=== PATIENT | female | born 1975 | race Caucasian/White ===

== ENCOUNTER 2016-11-18 17:46 | Emergency (ER) | payer MEDICAID ==
[2016-11-18] MEDS ORDERED: PROMETHAZINE HCL 25 MG TABLET PO ONE (18:32)
--- NOTE | 2016-11-18 18:32 | ER Document Report ---
ED Medical Screen (RME) - General Stated Complaint: CHEST PAIN,VOMITING,ANXIETY Notes: 41 yo female c/o n/v x 1 day, urinary frequency since yesterday. no fever. + hot/cold. also c/o left sided chest pain intermittantly x several days. pt is tachy HR 132, hypotensive 96/68. TRAVEL OUTSIDE OF THE [place] IN LAST 30 DAYS: No - Related Data Allergies/Adverse Reactions: acetaminophen [From Darvocet-N 100] Allergy (Verified 09/25/15 08:44) ibuprofen [From Motrin] Allergy (Verified 09/25/15 08:44) propoxyphene napsylate [From Darvocet-N 100] Allergy (Verified 09/25/15 08:44) Past Medical History - Social History Family history: Reviewed & Not Pertinent - Past Medical History Cardiac Medical History: Reports: Hx Hypercholesterolemia, Hx Hypertension Pulmonary Medical History: Reports: Hx Bronchitis Renal/ Medical History: Reports: Hx Ovarian Cysts GI Medical History: Reports: Hx Gastroesophageal Reflux Disease Musculoskeltal Medical History: Reports Hx Musculoskeletal Deformity, Reports Hx Musculoskeletal Trauma Psychiatric Medical History: Reports: Hx Anxiety, Hx Depression, Hx Post Traumatic Stress Disorder Past Surgical History: Reports: Hx Section, Hx Gynecologic Surgery - molar - Immunizations Hx Diphtheria, Pertussis, Tetanus Vaccination: Yes
[2016-11-18 19:22] LABS: ABSOLUTE BASOPHILS # (AUTO) 0.1 10^3/uL (0.0-0.2); ABSOLUTE LYMPHOCYTES (AUTO) 3.2 10^3/uL (0.5-4.7); ABSOLUTE MONOCYTES (AUTO) 0.5 10^3/uL (0.1-1.4); ABSOLUTE NEUT (AUTO) 10.8 10^3/uL (1.7-8.2); BASOPHILS % (AUTO) 0.4 % (0-2); EOSINOPHILS % (AUTO) 0.2 % (0-6); HEMATOCRIT 36.8 % (36.0-47.0); HEMOGLOBIN 11.9 g/dL (12.0-15.5); HGB HCT DIFFERENCE -1.1; LYMPHOCYTES % (AUTO) 22.1 % (13-45); MEAN CORPUSCULAR HEMOGLOBIN 23.1 pg (27.0-33.4); MEAN CORPUSCULAR HGB CONC 32.4 g/dL (32.0-36.0); MEAN CORPUSCULAR VOLUME 71 fl (80-97); MONOCYTES % (AUTO) 3.7 % (3-13); RED BLOOD COUNT 5.17 10^6/uL (3.72-5.28); RED CELL DISTRIBUTION WIDTH 13.6 % (11.5-14.0); SEGMENTED NEUTROPHILS % (AUTO) 73.6 % (42-78); WHITE BLOOD COUNT 14.6 10^3/uL (4.0-10.5)
[2016-11-18 19:24] LABS: APPEARANCE,URINE SLIGHTLY-CLOUDY; BILIRUBIN,URINE NEGATIVE (NEGATIVE); GLUCOSE, URINE NEGATIVE (NEGATIVE); KETONES,URINE TRACE mg/dL (NEGATIVE); LEUKOCYTE ESTERASE,URINE NEGATIVE (NEGATIVE); NITRITE,URINE NEGATIVE (NEGATIVE); PROTEIN,URINE 100 mg/dL (NEGATIVE); UROBILINOGEN,URINE NEGATIVE mg/dL (<2.0)
[2016-11-18 19:44] LABS: ALANINE AMINOTRANSFERASE 25 U/L (9-52); ALBUMIN 4.7 g/dL (3.5-5.0); ALKALINE PHOSPHATASE 91 U/L (38-126); ASPARTATE AMINO TRANSFERASE 28 U/L (14-36); BILIRUBIN,TOTAL 0.9 mg/dL (0.2-1.3); BLOOD UREA NITROGEN 11 mg/dL (7-20); CALCIUM 10.7 mg/dL (8.4-10.2); CREATINE KINASE 54 U/L (30-135); GLUCOSE 102 mg/dL (75-110); LIPASE 92.2 U/L (23-300); TOTAL PROTEIN 8.8 g/dL (6.3-8.2)
[2016-11-18 19:52] LABS: CARBON DIOXIDE 20 mmol/L (22-30); CHLORIDE 102 mmol/L (98-107); POTASSIUM 4.4 mmol/L (3.6-5.0); SODIUM 141.6 mmol/L (137-145)
[2016-11-18 19:55] LABS: ANION GAP 20 (5-19); CREATINE KINASE MB < 0.22 ng/mL (<4.55); TROPONIN I < 0.012 ng/mL
--- NOTE | 2016-11-19 11:28 | EKG REPORT ---
SEVERITY:- OTHERWISE NORMAL ECG - SINUS TACHYCARDIA : Confirmed by: Luther Roman 19-Nov-2016 11:27:05
== END 2016-11-18 22:30 | disposition left against medical advice (07) ==
LOC: ER 17:46
DX: R07.9 Chest pain, unspecified (principal); R11.10 Vomiting, unspecified; R35.0 Frequency of micturition; E78.00 Pure hypercholesterolemia, unspecified; I10 Essential (primary) hypertension; F43.10 Post-traumatic stress disorder, unspecified; Z88.6 Allergy status to analgesic agent
CPT/HCPCS: 93005; 99283; 36415; 82553; 82550; 83690; 85025; 80053; 81001; 84484; 93010; J3490

== ENCOUNTER → 2016-11-20 | Outpatient (CLI) | payer MEDICAID ==
[2016-11-20 19:09] LABS: CHLAM PCR NOT DETECTED (NOT DETECT)
== END ==
LOC: LAB 17:18
PROVIDERS: ATTEND Emergency Medicine
DX: N39.0 Urinary tract infection, site not specified (principal); R35.0 Frequency of micturition
CPT/HCPCS: 87086; 87210; 87491; 87591

== ENCOUNTER 2016-12-22 07:18 | Emergency (ER) | payer OTHER, MEDICAID ==
[2016-12-22 07:28] VITALS: BP 114/77
== END 2016-12-22 08:02 | disposition left against medical advice (07) ==
LOC: ER 07:18
DX: Z53.9 Procedure and treatment not carried out, unspecified reason (principal); R11.2 Nausea with vomiting, unspecified

== ENCOUNTER 2018-10-02 01:59 | Emergency (ER) | payer MEDICAID, OTHER ==
[2018-10-02 02:08] VITALS: BP 113/83
[2018-10-02] MEDS ORDERED: AMOXICILLIN TR/POT CLAVULANATE 500-125 MG TAB PO ONE (02:56)
--- NOTE | 2018-10-02 03:03 | ER Document Report ---
ED General - General Chief Complaint: Sore Throat Stated Complaint: THROAT ISSUES Time Seen by Provider: 10/02/18 02:26 Notes: Patient is a 43-year-old female presents with complaint of sore throat, cough, congestion, and pressure in her sinuses is worse in the right side. Some been going on for approximately a week. Started shortly after her daughter was diagnosed with a pharyngitis. Her daughter had a strep swab which was negative but then the culture grew out staph aureus as a cause of her pharyngitis. She was placed on Augmentin. Daughter is improved after being placed on Augmentin. Patient has had subjective fevers. She says she has had some vomiting after coughing. TRAVEL OUTSIDE OF THE [place] IN LAST 30 DAYS: No - Related Data Allergies/Adverse Reactions: acetaminophen [From Darvocet-N 100] Allergy (Verified 12/22/16 07:28) ibuprofen [From Motrin] Allergy (Verified 12/22/16 07:28) propoxyphene napsylate [From Darvocet-N 100] Allergy (Verified 12/22/16 07:28) Past Medical History - Social History Smoking Status: Never Smoker Frequency of alcohol use: None Drug Abuse: None Family History: Reviewed & Not Pertinent, Arthritis, CAD, DM, Hyperlipidemia, Hypertension - Past Medical History Cardiac Medical History: Reports: Hx Hypercholesterolemia, Hx Hypertension Pulmonary Medical History: Reports: Hx Bronchitis Renal/ Medical History: Reports: Hx Ovarian Cysts. Denies: Hx Peritoneal Dialysis GI Medical History: Reports: Hx Gastroesophageal Reflux Disease Musculoskeletal Medical History: Reports Hx Musculoskeletal Deformity, Reports Hx Musculoskeletal Trauma Psychiatric Medical History: Reports: Hx Anxiety, Hx Depression, Hx Post Traumatic Stress Disorder Past Surgical History: Reports: Hx Section, Hx Gynecologic Surgery - molar - Immunizations Hx Diphtheria, Pertussis, Tetanus Vaccination: Yes Review of Systems - Review of Systems Notes: My Normal Review Basic REVIEW OF SYSTEMS: CONSTITUTIONAL : Subjective fever EENT: Congestion. Sinus pressure. CARDIOVASCULAR: Denies chest pain. RESPIRATORY: Denies cough, cold, or chest congestion. Denies shortness of breath, difficulty breathing, or wheezing. GASTROINTESTINAL: Denies abdominal pain. Denies nausea, vomiting, or diarrhea. MUSCULOSKELETAL: Denies neck or back pain or joint pain or swelling. SKIN: Denies rash or skin lesions. NEUROLOGICAL: Denies altered mental status or loss of consciousness. ALL OTHER SYSTEMS REVIEWED AND NEGATIVE. Physical Exam - Vital signs Vitals: Temp Pulse Resp BP Pulse Ox 98.3 F 106 H 15 113/83 97 10/02/18 02:02 10/02/18 02:02 10/02/18 02:02 10/02/18 02:02 10/02/18 02:02 - Notes Notes: General Appearance: Well nourished, alert, cooperative, no acute distress, no obvious discomfort. Vitals: reviewed, See vital signs table. Head: no swelling or tenderness to the head Eyes: PERRL, EOMI, Conjuctiva clear Mouth: No decreasd moisture Throat: No tonsillar inflammation, No airway obstruction, No lymphadenopathy Nose: Audible nasal congestion. No yellowish drainage from the nose. Ears: Normal-appearing tympanic membranes bilaterally except for some clear fluid behind the right TM. Neck: Supple, no neck tenderness, No thyromegaly Lungs: No wheezing, No rales, No rhonci, No accessory muscle use, good air exchange bilaterally. Heart: Normal rate, Regular rythm, No murmur, no rub Extremities: good pulses in all extremities, no swelling or tenderness in the extremities, no edema. Skin: warm, dry, appropriate color, no rash Neuro: speech clear, oriented x 3, normal affect, responds appropriately to questions. Course - Re-evaluation Re-evalutation: 10/02/18 06:39 Patient has obvious nasal congestion on exam and complains of a lot of sinus pressure going into the right side of her face behind her right ear. She does have clear fluid behind right TM. All the symptoms started after exposure to her son who is culture positive for staph aureus pharyngitis. Informed the mother that this is rare but it does happen sometimes. The patient has a large amount sinusitis after exposure to her son and will place her on Augmentin to help treat this. I encouraged her return to ER if she has fevers, vomiting, worsening pain, difficulty breathing, or feels unwell. Patient agrees with plan and will be discharged home. Dictation of this chart was performed using voice recognition software; therefore, there may be some unintended grammatical errors. - Vital Signs Vital signs: Temp Pulse Resp BP Pulse Ox 98.3 F 106 H 15 113/83 97 10/02/18 02:02 10/02/18 02:02 10/02/18 02:02 10/02/18 02:02 10/02/18 02:02 Discharge - Discharge Clinical Impression: Sinusitis Qualifiers: Sinusitis location: unspecified location Chronicity: acute Recurrence: not specified as recurrent Qualified Code(s): J01.90 - Acute sinusitis, unspecified Condition: Good Disposition: HOME, SELF-CARE Additional Instructions: Please take the antibiotic as prescribed with food. Please return to the ER if you have fevers, difficulty breathing, worsening pain, or feel unwell. Please follow up with your doctor in 3-5 days for reevaluation. Prescriptions: Amox Tr/Potassium Clavulanate [Augmentin 875-125 Tablet] 1 tab PO BID 10 Days tablet Fluconazole [Diflucan] 150 mg PO ASDIR PRN #2 tablet PRN Reason: Referrals: JALEESA GARCIA PA-C [Primary Care Provider] - Follow up in 3-5 days
== END 2018-10-02 03:29 | disposition home or self-care (01) ==
LOC: ER 01:59
DX: J01.90 Acute sinusitis, unspecified (principal); R09.81 Nasal congestion; J02.9 Acute pharyngitis, unspecified; R05 Cough; R11.10 Vomiting, unspecified; I10 Essential (primary) hypertension; Z20.818 Contact with and (suspected) exposure to other bacterial communicable diseases; Z88.6 Allergy status to analgesic agent
CPT/HCPCS: 99282

== ENCOUNTER → 2019-02-02 | Outpatient (CLI) | payer MEDICAID, OTHER ==
--- NOTE | 2019-02-02 15:51 | WOMENS IMAGING REPORT ---
EXAM DESCRIPTION: BILAT SCREENING MAMMO W/CAD COMPLETED DATE/TIME: 02/02/2019 2:12 pm REASON FOR STUDY: Z12.31 ROUTINE BILATERAL [id number] ENCNTR SCREEN MAMMOGRAM FOR MALIGNANT NE OPLASM OF MAURI COMPARISON: 05/29/2015, 06/26/2013, 05/13/2010 TECHNIQUE: Standard craniocaudal and mediolateral oblique views of each breast recorded using [employer] acquisition. LIMITATIONS: None. FINDINGS: RIGHT BREAST MASSES: No suspicious masses. CALCIFICATIONS: No new or suspicious calcifications. ARCHITECTURAL DISTORTION: None. DEVELOPING DENSITY: None. ASYMMETRY: Asymmetrically dense tissue is present in the right breast upper outer quadrant about 5 cm from the nipple. This requires further evaluation with compression magnification views in the CC an d MLO orientations, 90 mediolateral view and right breast ultrasound OTHER: No other significant findings. LEFT BREAST MASSES: No suspicious masses. CALCIFICATIONS: No new or suspicious calcifications. ARCHITECTURAL DISTORTION: None. DEVELOPING DENSITY: None. ASYMMETRY: None noted. OTHER: No other significant findings. Read with the assistance of CAD. .[facility] - R2 Cenova Version 1.3 .[facility] Imaging - R2 Cenova Version 1.3 .[facility] - R2 Cenova Version 2.4 .[facility] [place] - R2 Cenova Version 2.4 .[facility] - R2 Y[employer] Gatherer Version 9.2 IMPRESSION: Asymmetrically dense tissue right breast upper outer quadrant for which diagnostic mammo graphy and ultrasound is recommended No mammographic evidence for malignancy left breast BREAST DENSITY: b. There are scattered areas of fibroglandular density. BIRAD: 0 Incomplete: Needs Additional Imaging Evaluation and/or prior Mammograms for Comparison. RECOMMENDATION: RECOMMENDED FOLLOW-UP: Additional right breast diagnostic mammograms and ultrasound The patient will be contacted for additional imaging. COMMENT: The patient has been notified of the results by letter per [place] requirements. Additional no tification policies are in place for contacting patient with suspicious or incomplete findings. Quality ID #225: The [employer] recommends an annual screening mammogram for women aged 40 years or over. This facility utilizes a reminder system to ensure that all patients receive reminder letters, and/or direct phone calls for appointments. This includes reminders for routine scr eening mammograms, diagnostic mammograms, or other Breast Imaging Interventions when appropriate. Th is patient will be placed in the appropriate reminder system. The [employer] (ACR) has developed recommendations for screening MRI of the breast s in certain patient populations, to be used in conjunction with mammography. Breast MRI surveillanc e may be appropriate for women with more than 20% lifetime risk of developing breast cancer as deter mined by genetic testing, significant family history of the disease, or history of mantle radiation f or Hodgkins Disease. ACR Practice Guidelines 2008. TECHNICAL DOCUMENTATION: FINDING NUMBER: (1) ASSESSMENT: (1) JOB ID: [id number] [employer]- All Rights Reserved Reading location - IP/workstation name: [email or web address]
== END ==
LOC: WI 13:44
PROVIDERS: ATTEND Physician Assistant Medical
DX: Z12.31 Encounter for screening mammogram for malignant neoplasm of breast (principal); R92.2 Inconclusive mammogram
CPT/HCPCS: 77067

== ENCOUNTER → 2019-02-08 | Outpatient (CLI) | payer OTHER ==
--- NOTE | 2019-02-09 08:47 | WOMENS IMAGING REPORT ---
EXAM DESCRIPTION: RIGHT DIAGNOSTIC MAMMO W/CAD; U/S BREAST UNILAT LIMITED COMPLETED DATE/TIME: 02/08/2019 12:25 pm; 02/08/2019 12:46 pm REASON FOR STUDY: N63.11 UNSPECIFIED LUMP IN THE RIGHT BREAST, UPPER OUTER QUADRANT; N63.11 RIGHT BR EAST N63.11 UNSPECIFIED LUMP IN THE RIGHT BREAST, UPPER OUTER LUIS MIGUEL COMPARISON: None. TECHNIQUE: Cone compression craniocaudal and mediolateral oblique images of the breast recorded with digital acquisition. Right breast 90 mediolateral view. Right breast ultrasound was also performed LIMITATIONS: None. FINDINGS: BREAST LATERALITY: Right MASSES: No suspicious masses. CALCIFICATIONS: No new or suspicious calcifications. ARCHITECTURAL DISTORTION: None. DEVELOPING DENSITY: None. ASYMMETRY: There is asymmetrically dense fibroglandular tissue in the upper outer quadrant without ar chitectural distortion or worrisome microcalcifications. OTHER: No other significant findings. Right breast ultrasound: Ultrasound of the upper outer quadrant was performed. There is fibroglandular tissue in the upper ou ter quadrant without worrisome features. IMPRESSION: No mammographic or sonographic evidence for malignancy right breast BREAST DENSITY: b. There are scattered areas of fibroglandular density. BIRAD: 1 Negative. RECOMMENDATION: RECOMMENDED FOLLOW UP: Please continue yearly bilateral screening mammography/ tomos ynthesis in January 2020 SPECIFIC INTERVENTION/IMAGING/CONSULTATION RECOMMENDED:No additional intervention/ imaging/consultati on needed at this time. COMMUNICATION:Patient notified by letter COMMENT: The patient has been notified of the results by letter per MQSA requirements. Additional no tification policies are in place for contacting patient with suspicious or incomplete findings. Quality ID #225: The [employer] recommends an annual screening mammogram for women aged 40 years or over. This facility utilizes a reminder system to ensure that all patients receive reminder letters, and/or direct phone calls for appointments. This includes reminders for routine scr eening mammograms, diagnostic mammograms, or other Breast Imaging Interventions when appropriate. Th is patient will be placed in the appropriate reminder system. TECHNICAL DOCUMENTATION: FINDING NUMBER: (1) ASSESSMENT: (1) JOB ID: [id number] [employer]- All Rights Reserved Reading location - IP/workstation name: [email or web address]
== END ==
LOC: WI 12:13
PROVIDERS: ATTEND Physician Assistant Medical
DX: N63.11 Unspecified lump in the right breast, upper outer quadrant (principal)
CPT/HCPCS: 76642

== ENCOUNTER 2019-09-21 06:54 | Day surgery (SDC) | payer OTHER ==
[2019-09-21 07:26] LABS: APPEARANCE,URINE SLIGHTLY-CLOUDY; BILIRUBIN,URINE NEGATIVE (NEGATIVE); COLOR,URINE YELLOW; GLUCOSE, URINE NEGATIVE (NEGATIVE); KETONES,URINE NEGATIVE (NEGATIVE); LEUKOCYTE ESTERASE,URINE NEGATIVE (NEGATIVE); NITRITE,URINE NEGATIVE (NEGATIVE); PROTEIN,URINE NEGATIVE (NEGATIVE); URINE SPECIFIC GRAVITY 1.027
[2019-09-21] MEDS ORDERED: CEFAZOLIN INJ 1 GM VIAL ONE (07:40)
[2019-09-21 07:46] LABS: HEMATOCRIT 31.8 % (36.0-47.0); HEMOGLOBIN 10.3 g/dL (12.0-15.5); MEAN CORPUSCULAR HEMOGLOBIN 23.5 pg (27.0-33.4); MEAN CORPUSCULAR HGB CONC 32.3 g/dL (32.0-36.0); MEAN CORPUSCULAR VOLUME 73 fl (80-97); PLATELET COUNT 228 10^3/uL (150-450); RED BLOOD COUNT 4.37 10^6/uL (3.72-5.28); RED CELL DISTRIBUTION WIDTH 16.6 % (11.5-14.0); WHITE BLOOD COUNT 5.7 10^3/uL (4.0-10.5)
[2019-09-21 08:04] LABS: ALBUMIN 3.8 g/dL (3.5-5.0); ALKALINE PHOSPHATASE 51 U/L (38-126); ANION GAP 7 (5-19); ASPARTATE AMINO TRANSFERASE 15 U/L (14-36); BILIRUBIN,DIRECT 0.1 mg/dL (0.0-0.4); BILIRUBIN,TOTAL 0.5 mg/dL (0.2-1.3); BLOOD UREA NITROGEN 14 mg/dL (7-20); CALCIUM 9.1 mg/dL (8.4-10.2); CARBON DIOXIDE 29 mmol/L (22-30); CHLORIDE 104 mmol/L (98-107); GLUCOSE 87 mg/dL (75-110); POTASSIUM 3.7 mmol/L (3.6-5.0)
[2019-09-21] MEDS ORDERED: MIDAZOLAM 2 MG/2 ML INJ ONE ×2 (08:04→09:03)
[2019-09-21] MEDS ORDERED: FENTANYL CITRATE INJ/PF 100 MCG/2 ML AMPUL IV PRN ×3 (08:35)
[2019-09-21] MEDS ORDERED: PROMETHAZINE HCL INJ 25 MG/1 ML VIAL IV PRN ×3 (08:35→10:58)
[2019-09-21] MEDS ORDERED: MEPERIDINE HCL/PF INJ 25 MG/1 ML DISP.SYRIN IV PRN (08:35)
[2019-09-21] MEDS ORDERED: DIPHENHYDRAMINE HCL 50 MG/ML VIAL IV PRN (08:35)
[2019-09-21] MEDS ORDERED: MIDAZOLAM 2 MG/2 ML INJ IV ONE (08:45)
[2019-09-21] MEDS ORDERED: LIDOCAINE 2% INJ-PF (20 MG/ML) 10 ML AMPUL ONE (09:03)
[2019-09-21] MEDS ORDERED: FENTANYL CITRATE INJ/PF 100 MCG/2 ML AMPUL ONE (09:03)
[2019-09-21] MEDS ORDERED: DEXAMETHASONE SOD PHOSPHATE INJ 4 MG/1 ML VIAL ONE (09:03)
[2019-09-21] MEDS ORDERED: PROPOFOL INJ 200 MG/20 ML VIAL IV ONE ×2 (09:03→09:21)
[2019-09-21] MEDS ORDERED: LIDOCAINE 1% INJ-PF (10 MG/ML) 30 ML SDV ONE (09:08)
[2019-09-21] MEDS ORDERED: ACETAMINOPHEN 1,000 MG/100 ML RTUPB IV ONE (10:29)
[2019-09-21] MEDS ORDERED: TRAMADOL HCL 50 MG TABLET PO PRN ×2 (10:56→10:57)
[2019-09-21] MEDS ORDERED: ACETAMINOPHEN WITH CODEINE #3 TABLET PO PRN ×2 (11:01)
[2019-09-21] MEDS ORDERED: PROMETHAZINE HCL INJ 25 MG/1 ML VIAL ONE (11:18)
[2019-09-21 12:25] VITALS: BP 128/92
--- NOTE | 2019-09-21 17:21 | Operative Report ---
Operative Report DATE OF SURGERY: 09/21/19 PREOPERATIVE DIAGNOSIS: DUB / Menometrorrhagia / Anemia POSTOPERATIVE DIAGNOSIS: same OPERATION: D&C / Hysteroscopy / Novasure SURGEON: anai ANESTHESIA: LMAC TISSUE REMOVED OR ALTERED: Endometrium COMPLICATIONS: None ESTIMATED BLOOD LOSS: 20 cc INTRAOPERATIVE FINDINGS: Normal female pelvic anatomy PROCEDURE: Patient was brought into the OR and placed on table in a supine position. She was then sedated under LMAC. Patient was repositioned in a dorsolithotomy position. A pelvic under anesthesia was then performed with normal findings. A weighted vaginal speculum was then inserted into the vagina. The anterior lip of the cervix was then grasped with a single-tooth tenaculum and a Allis forceps. The uterine cavity was sounded to 8 cm. The cervix was sounded to 3 cm. This gave us a endometrial cavity length of 5 cm. Cervix was dilated to a #8 Hegar dilator. Endometrial cavity was curetted with a small sharp curette. The endometrial cavity was then visualized with a hysteroscope. The excess saline was then suctioned out. The NovaSure apparatus was then opened up and gently inserted through the cervix into the endometrial cavity. The NovaSure was then opened up. We had a cavity width of 3.5 cm and cavity length of 5 cm. The NovaSure was then purged and activated. A good burn was obtained. The NovaSure equipment was closed and removed from the endometrial cavity. Once again a hysteroscopy was carried out of the endometrial cavity in the normal fashion which revealed a good endometrial burn. The excess saline was then suctioned out. The equipment was removed. Anesthesia was then discontinued and the patient was placed back in a supine position patient was transferred to the recovery room in satisfactory condition. Estimated blood loss was less than 20 cc. Patient tolerated the procedure well.
== END 2019-09-21 12:00 | disposition home or self-care (01) ==
LOC: OROUT 06:54
PROVIDERS: ATTEND Obstetrics & Gynecology
DX: N92.1 Excessive and frequent menstruation with irregular cycle (principal); N93.8 Other specified abnormal uterine and vaginal bleeding; D64.9 Anemia, unspecified; Z79.899 Other long term (current) drug therapy
CPT/HCPCS: 36415; 85027; 81025; 80053; 81001; 88305 ×2; 58563; J2250; J0690; J1100; J3010; J3490 ×2; J2550; J2704; J0131; 952